=== PATIENT | female | born 1985 | race Caucasian/White ===

== ENCOUNTER 2016-05-25 19:25 | Emergency (ER) | payer OTHER ==
[2016-05-25 19:36] VITALS: BP 134/79; PULSE 76; TEMP 97.4; BMI 26.4
--- NOTE | 2016-05-25 19:39 | PDOC ---
Rapid Medical Evaluation Time Seen by Provider: 05/25/16 19:33 Medical Evaluation: Allergies Allergy/AdvReac Type Severity Reaction Status Date / Time No Known Allergies Allergy Verified 01/27/15 04:58 05/25/16 19:33 I have performed a brief in-person evaluation of this patient. This is an otherwise healthy 30 yo F who presents to the ER with a complaint of neck pain Symptoms began 2 -3 hours ago. pain progressively worsened over the course of an hour. Pain located in the left neck, radiates to the left upper shoulder, 7-8/10 No difficulty moving left arm LMP: 05/11/16 Pertinent physical exam findings: Tender to palpation in the left trapezius muscle No midline cervical spine tenderness to palpation Normal range of motion of the neck I will not ordered imaging at this time: The patient will proceed to Fast track for further evaluation.
[2016-05-25] MEDS ORDERED: KETOROLAC TROMETHAMINE 60 MG/2 ML VIAL IM ONE (19:55)
[2016-05-25] MEDS ORDERED: IBUPROFEN 600 MG TABLET (FP) PO ONE (20:23)
[2016-05-25] MEDS ORDERED: diazePAM 5 MG TABLET PO ONE (20:23)
[2016-05-25] MEDS ORDERED: diazePAM 5 MG TABLET ONE (20:28)
[2016-05-25] MEDS ORDERED: IBUPROFEN 400 MG TABLET (FP) PO ONE (20:28)
--- NOTE | 2016-05-25 20:30 | PDOC ---
History of Present Illness - General Chief Complaint: Injury Stated Complaint: INJURY/YPD Time Seen by Provider: 05/25/16 19:33 History Source: Patient Exam Limitations: No Limitations - History of Present Illness Initial Comments: 05/25/16 20:25 30 yr female with c/o neck pain started at 4pm after slipping getting out the car today at work as [employer]. Pt states the pain is getting worse radiating to left shoulder and arm. Loss of Consciousness: no loss of consciousness Past History - Past Medical History Allergies/Adverse Reactions: Allergies Allergy/AdvReac Type Severity Reaction Status Date / Time No Known Allergies Allergy Verified 05/25/16 19:34 Home Medications: Ambulatory Orders No Home Medications 0 dose .ROUTE UTDICT 03/08/13 Diazepam [Valium] 2 mg PO TID PRN #21 tablet MDD 6MG 05/25/16 Ibuprofen 800 mg PO TID PRN #20 tablet 05/25/16 Other medical history: denies - Immunization History Immunization Up to Date: Yes - Psycho/Social/Smoking Cessation Hx Anxiety: No Suicidal Ideation: No Smoking Status: No Smoking History: Unknown if ever smoked Have you smoked in the past 12 months: No Number of Cigarettes Smoked Daily: 0 Hx Alcohol Use: No Drug/Substance Use Hx: No Substance Use Type: None *Physical Exam - Vital Signs Last Vital Signs Temp Pulse Resp BP Pulse Ox 97.4 F L 76 18 134/79 98 05/25/16 19:35 05/25/16 19:35 05/25/16 19:35 05/25/16 19:35 05/25/16 19:35 - Physical Exam General Appearance: Yes: Nourished, Appropriately Dressed HEENT: positive: EOMI, BRIA, Normal ENT Inspection, TMs Normal, Pharynx Normal Neck: positive: Supple, Tender lateral (left trapezius muscle ttp, spasm ). negative: Tender Respiratory/Chest: positive: Lungs Clear, Normal Breath Sounds Cardiovascular: positive: Regular Rhythm, Regular Rate Gastrointestinal/Abdominal: positive: Normal Bowel Sounds, Soft Musculoskeletal: positive: Normal Inspection Extremity: positive: Normal Capillary Refill, Normal Inspection, Normal Range of Motion Integumentary: positive: Normal Color, Dry, Warm Neurologic: positive: Fully Oriented, Alert, Normal Mood/Affect, Normal Response , Motor Strength 5/5 *DC/Admit/Observation/Transfer Diagnosis at time of Disposition: Neck sprain Qualifiers: Encounter type: initial encounter Qualified Code(s): S13.9XXA - Sprain of joints and ligaments of unspecified parts of neck, initial encounter - Prescriptions Prescriptions: Ibuprofen 800 mg PO TID PRN #20 tablet PRN Reason: Pain Diazepam [Valium] 2 mg PO TID PRN #21 tablet MDD 6MG PRN Reason: Muscle Spasms - Referrals Referrals: Yuly Soriano [Primary Care Provider] - Luis Carlos Lam MD [Staff Physician] - - Patient Instructions Additional Instructions: apply an ice pack for 20-30 minutes every 3hrs to the neck area while awake take motrin 800mg every 6-8hrs for pain as needed take valium as directed for muscle spasm follow with [facility] for follow up or with the orthopedist for follow up DO NOT DRIVE, OPERATE MACHINERY OR DRINK ALCOHOL WHILE TAKING VALIUM - Post Discharge Activity Work/School Note: Back to Work
[2016-05-25] MEDS ORDERED: KETOROLAC TROMETHAMINE 30 MG/1 ML VIAL ONE (20:32)
== END 2016-05-25 20:56 | disposition home or self-care (01) ==
LOC: JERFT 19:25
PROC: 3E0233Z Introduction of Anti-inflammatory into Muscle, Percutaneous Approach (ICD-10-PCS; principal; 2016-05-25)
DX: S13.9XXA Sprain of joints and ligaments of unspecified parts of neck, initial encounter (principal); W01.0XXA Fall on same level from slipping, tripping and stumbling without subsequent striking against object, initial encounter; Y93.89 Activity, other specified; Y92.410 Unspecified street and highway as the place of occurrence of the external cause; Y99.0 Civilian activity done for income or pay
CPT/HCPCS: 99281-25

== ENCOUNTER 2016-09-17 15:11 | Emergency (ER) | payer BC, OTHER ==
[2016-09-17 15:17] VITALS: BP 104/74; PULSE 91; TEMP 98.7; BMI 26.4
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
[2016-09-17] MEDS ORDERED: NAPROXEN 500 MG TABLET (FP) PO ONE (16:30)
[2016-09-17] MEDS ORDERED: NAPROXEN 500 MG TABLET (FP) ONE (16:34)
== END 2016-09-17 17:32 | disposition home or self-care (01) ==
LOC: JERFT 15:11
DX: S13.4XXA Sprain of ligaments of cervical spine, initial encounter (principal); S40.012A Contusion of left shoulder, initial encounter; V43.52XA Car driver injured in collision with other type car in traffic accident, initial encounter; Y92.411 Interstate highway as the place of occurrence of the external cause; Y93.89 Activity, other specified; Y99.8 Other external cause status
CPT/HCPCS: 73000-TC-LT; 99282-25

== ENCOUNTER 2019-02-01 21:14 | Emergency (ER) | payer OTHER, BC ==
[2019-02-01 21:23] VITALS: BP 114/79; PULSE 80; TEMP 98.1; BMI 23.6
--- NOTE | 2019-02-01 22:05 | PDOC ---
History of Present Illness - General Chief Complaint: Pain, Acute Stated Complaint: PAIN (YPD) Time Seen by Provider: 02/01/19 21:55 History Source: Patient Exam Limitations: No Limitations - History of Present Illness Initial Comments: 02/01/19 22:05 33-year-old female with history of muscle spasms and panic attacks on Valium p.o. as needed complains of upper back pain left side greater than right side which began about an hour and a half ago. Denies trauma, neck pain, headache, nausea, vomiting or any other complaints. Patient is a [employer] officer. Has not taken anything for pain. ROS: GENERAL/CONSTITUTIONAL: No fever, chills, weakness HEAD, EYES, EARS, NOSE AND THROAT: No changes in vision, No ear pain or discharge, No sore throat CARDIOVASCULAR: No chest pain RESPIRATORY: No shortness of breath or cough GASTROINTESTINAL: No pain, nausea, vomiting, diarrhea or constipation GENITOURINARY: No dysuria MUSCULOSKELETAL: Upper back pain, denies neck pain SKIN: No rash NEUROLOGIC: No headache, vertigo, loss of consciousness, or loss of sensation PE: GENERAL: well-appearing, NAD HEAD: NCAT EYES: Pupils equal, round and reactive to light, sclera anicteric, conjunctiva clear ENT: pharynx: no erythema, no exudate, uvula midline NECK: supple CHEST: nontender RESP: clear, no w/r/r CARDIO: rrr, no m/g/r ABD: +BS, soft, nontender, non distended BACK: no midline spinal ttp, paraspinal tenderness to palpation T1-T4 EXTREMITIES: Normal range of motion, no edema NEUROLOGICAL: Normal speech, normal gait SKIN: Warm, Dry Past History - Past Medical History Allergies/Adverse Reactions: Allergies Allergy/AdvReac Type Severity Reaction Status Date / Time No Known Allergies Allergy Verified 02/01/19 21:23 Home Medications: Ambulatory Orders NK [No Known Home Medication] 09/17/16 COPD: No - Immunization History Immunization Up to Date: Yes - Psycho Social/Smoking Cessation Hx Smoking Status: No Smoking History: Never smoked Have you smoked in the past 12 months: No Number of Cigarettes Smoked Daily: 0 Hx Alcohol Use: No Drug/Substance Use Hx: No Substance Use Type: None *Physical Exam - Vital Signs Last Vital Signs Temp Pulse Resp BP Pulse Ox 98.1 F 80 18 114/79 99 02/01/19 21:21 02/01/19 21:21 02/01/19 21:21 02/01/19 21:21 02/01/19 21:21 Medical Decision Making - Medical Decision Making 02/01/19 22:08 33-year-old female complaining of upper back pain left side greater than right side. Ibuprofen 600 mg p.o. x1 Advised to take 5 mg of Valium p.o. x1 when she arrives home Stable for discharge Follow up with PMD Return precautions Discharge - Discharge Information Problems reviewed: Yes Clinical Impression/Diagnosis: Upper back pain Condition: Stable Disposition: HOME - Admission No - Follow up/Referral Referrals: Ankit Boston MD [Primary Care Provider] - - Patient Discharge Instructions Additional Instructions: Take ibuprofen 600 mg every 6 hours as needed for pain Follow-up with your doctor within 1 week Return to ED if numbness tingling, weakness to upper extremities or worsening symptoms - Post Discharge Activity
[2019-02-01] MEDS ORDERED: IBUPROFEN 600 MG TABLET (FP) PO ONE ×2 (22:10→22:14)
== END 2019-02-01 22:33 | disposition home or self-care (01) ==
LOC: JERFT 21:14
DX: M54.89 Other dorsalgia (principal); Z87.39 Personal history of other diseases of the musculoskeletal system and connective tissue
CPT/HCPCS: 99281-25

== ENCOUNTER 2019-05-13 15:57 | Emergency (ER) | payer BC, OTHER ==
[2019-05-13 16:36] VITALS: BP 133/90; TEMP 97.8; BMI 24.5
[2019-05-13] MEDS ORDERED: KETOROLAC TROMETHAMINE 60 MG/2 ML VIAL IM ONE (17:17)
[2019-05-13] MEDS ORDERED: traMADol HCL 50 MG TABLET PO ONE (17:23)
[2019-05-13] MEDS ORDERED: KETOROLAC TROMETHAMINE 60 MG/2 ML VIAL ONE (17:29)
[2019-05-13] MEDS ORDERED: traMADol HCL 50 MG TABLET ONE (17:29)
[2019-05-13] MEDS ORDERED: IBUPROFEN 400 MG TABLET (FP) PO ONE (17:33)
--- NOTE | 2019-05-13 17:48 | PDOC ---
History of Present Illness - General Chief Complaint: Hemorrhoids Stated Complaint: HEMROIDS Time Seen by Provider: 05/13/19 17:08 History Source: Patient - History of Present Illness Timing/Duration: reports: constant Past History - Past Medical History Allergies/Adverse Reactions: Allergies Allergy/AdvReac Type Severity Reaction Status Date / Time No Known Allergies Allergy Verified 05/13/19 16:33 Home Medications: Ambulatory Orders Docusate Sodium [Colace -] 100 mg PO DAILY #30 capsule 05/13/19 Hydrocortisone 2.5% Topical Cr [Anusol 2.5% Hc Cream -] 1 applic RC BID 7 Days # 1 tube 05/13/19 Ibuprofen [Motrin -] 800 mg PO Q6H #30 tablet 05/13/19 COPD: No - Immunization History Immunization Up to Date: Yes - Psycho Social/Smoking Cessation Hx Smoking Status: No Smoking History: Never smoked Have you smoked in the past 12 months: No Number of Cigarettes Smoked Daily: 0 Information on smoking cessation initiated: No Hx Alcohol Use: No Drug/Substance Use Hx: No Substance Use Type: None Review of Systems - Review of Systems Constitutional: No: Chills, Fever ABD/GI: Yes: Constipated. No: Blood Streaked Bowels, Diarrhea, Nausea, Rectal Bleeding, Vomiting, Abdominal cramping, Tarry Stools *Physical Exam - Vital Signs Last Vital Signs Temp Pulse Resp BP Pulse Ox 97.8 F 144 H 18 133/90 97 05/13/19 16:33 05/13/19 16:33 05/13/19 16:33 05/13/19 16:33 05/13/19 16:33 - Physical Exam 05/13/19 17:48 unable to sit due to pain from hemorrhoids General Appearance: Yes: Moderate Distress HEENT: positive: Normal Voice Respiratory/Chest: negative: Respiratory Distress Gastrointestinal/Abdominal: positive: Soft. negative: Tender Rectal Exam: positive: hemorrhoids (2 large, non-thrombosed external hemorrhoids , sig ttp) Integumentary: positive: Dry, Warm Neurologic: positive: Fully Oriented, Alert, Normal Mood/Affect ED Treatment Course - Medications Given in the ED: ED Medications Discontinued Medications Generic Name Dose Route Start Last Admin Trade Name Freq PRN Reason Stop Dose Admin Ketorolac Tromethamine 60 mg 05/13/19 17:17 05/13/19 17:35 Toradol Injection - IM 05/13/19 17:18 60 mg ONCE ONE Administration Tramadol HCl 50 mg 05/13/19 17:23 05/13/19 17:35 Ultram - PO 05/13/19 17:24 50 mg ONCE ONE Administration Medical Decision Making - Medical Decision Making 05/13/19 17:41 33-yo F, endorses history of hemorrhoids, here with rectal pain and swelling consistent with her hemorrhoids since yesterday. Using Preparation H with no relief. Denies rectal pain or bleeding but does report possible constipation for the past 2 days. No procedure for hemorrhoids in the past. See exam External hemorrhoids Tavchy to 144 at triage, m/l 2/2 pain, improved to 110 in ED No e/o thrombosis -Pain control in ED -Dc w/ same, anusol, stool softener and sitz bath -To return as needed -GI f/u given 05/13/19 17:50 Discharge - Discharge Information Problems reviewed: Yes Clinical Impression/Diagnosis: Hemorrhoids Qualifiers: Hemorrhoid type: unspecified Qualified Code(s): K64.9 - Unspecified hemorrhoids Condition: Good Disposition: HOME - Additional Discharge Information Prescriptions: Docusate Sodium [Colace -] 100 mg PO DAILY #30 capsule Hydrocortisone 2.5% Topical Cr [Anusol 2.5% Hc Cream -] 1 applic RC BID 7 Days # 1 tube Ibuprofen [Motrin -] 800 mg PO Q6H #30 tablet - Follow up/Referral Referrals: Ankit Boston MD [Primary Care Provider] - Ronny Alcazar MD [Staff Physician] - - Patient Discharge Instructions Patient Printed Discharge Instructions: DI for Hemorrhoids Additional Instructions: Take meds as directed and perform sitz bath 2-3 times a day as discussed Increase fluids and fiber in diet as discussed If symptoms worsen or persistent, return to the ED, otherwise follow-up with Dr. Alcazar of GI for further management of your hemorrhoids - Post Discharge Activity
[2019-05-13 18:10] VITALS: PULSE 110
== END 2019-05-13 18:10 | disposition home or self-care (01) ==
LOC: JER 15:57
PROC: 3E0233Z Introduction of Anti-inflammatory into Muscle, Percutaneous Approach (ICD-10-PCS; principal; 2019-05-13)
DX: K64.9 Unspecified hemorrhoids (principal)
CPT/HCPCS: 99284-25

== ENCOUNTER 2020-05-23 18:12 | Emergency (ER) | payer BC, OTHER ==
[2020-05-23 18:27] VITALS: BP 130/81; PULSE 89; TEMP 98.6; BMI 25.1
== END 2020-05-23 18:43 | disposition home or self-care (01) ==
LOC: FER 18:12
DX: H93.13 Tinnitus, bilateral (principal); G44.219 Episodic tension-type headache, not intractable; Z00.00 Encounter for general adult medical examination without abnormal findings
CPT/HCPCS: 99282-25

== ENCOUNTER 2020-11-16 15:48 | Emergency (ER) | payer OTHER ==
[2020-11-16 15:59] VITALS: BP 118/72; PULSE 90; TEMP 99; BMI 24.5
[2020-11-16] MEDS ORDERED: IBUPROFEN 600 MG TABLET (FP) PO ONE ×2 (16:42→16:59)
== END 2020-11-16 17:45 | disposition home or self-care (01) ==
LOC: FER 15:48
DX: S93.401A Sprain of unspecified ligament of right ankle, initial encounter (principal); W50.2XXA Accidental twist by another person, initial encounter; Y92.9 Unspecified place or not applicable
CPT/HCPCS: 73610-TC-RT-FY; 99284-25

== ENCOUNTER → 2020-11-23 | Day surgery (SDC) | payer BC, OTHER ==
[2020-11-18 14:29] VITALS: BMI 26.4
[~2020-11-23] MED LIST: ACETAMINOPHEN 1000 MG/100 ML VIAL (NON FORMULARY) IVPB ONE; ACETAMINOPHEN 325 MG TABLET (FP) PO PRN; IBUPROFEN 400 MG TABLET (FP) PO PRN; LACTATED RINGERS SOLUTION 1,000 ML IV SCH; MIDAZOLAM HCL 2 MG/2 ML SINGLE DOSE VIAL ONE; ONDANSETRON 4 MG/2 ML VIAL IVPUSH PRN; PROPOFOL 20 ML ONE; SILVER NITRATE 75% APPLIC STCK 1 PKT EACH TP ONE
[2020-11-23 16:50] VITALS: BP 106/63; PULSE 61; TEMP 98.2
== END | disposition home or self-care (01) ==
LOC: JASU-SURG 04:40
PROVIDERS: ATTEND Obstetrics & Gynecology
PROC: 0U5B8ZZ Destruction of Endometrium, Via Natural or Artificial Opening Endoscopic (ICD-10-PCS; principal; 2020-11-23 12:00)
DX: N92.0 Excessive and frequent menstruation with regular cycle (principal)
CPT/HCPCS: 81025; 94760; J0131

== ENCOUNTER 2021-06-19 18:16 | Emergency (ER) | payer OTHER ==
[2021-06-19 18:23] VITALS: BP 121/77; PULSE 96; TEMP 98.3; BMI 26.4
== END 2021-06-19 20:19 | disposition home or self-care (01) ==
LOC: JER 18:16 → JERFT 18:16
DX: S59.902A Unspecified injury of left elbow, initial encounter (principal); W01.198A Fall on same level from slipping, tripping and stumbling with subsequent striking against other object, initial encounter
CPT/HCPCS: 73070-TC-LT-FY; 99283-25